=== PATIENT | female | born 1950 | race Caucasian/White ===

== ENCOUNTER 2017-11-16 02:45 | Emergency (ER) | payer MEDICARE, BC ==
[2017-11-16 03:20] LABS: #Basophils 0.1 thou/uL (0.0-0.2); #Eosinphils 0.6 thou/uL (0.0-0.7); #Lymphocytes 1.3 thou/uL (1.20-3.40); #Monocytes 1.2 thou/uL (0.11-0.59); #Neutrophils 9.5 thou/uL (1.40-6.50); %Basophils 0.5 % (0.0-1.0); %Eosinophils 4.4 % (0.0-10.0); %Lymphocytes 10.3 % (21.0-51.0); %Monocytes 9.2 % (0.0-10.0); %Neutrophils 75.6 % (42.0-75.0); Hemoglobin 13.2 g/dL (12.0-16.0); Mean Corpuscular HGB CONC 34.2 g/dL (32.0-36.0); Mean Corpuscular Hemoglobin 32.5 pg (27.0-31.0); Mean Platelet Volume 7.4 fL (7.4-10.4); Platelet Count 285 thou/uL (130-400); RBC Distribution Width 11.3 % (11.5-14.5); Red Blood Cell (RBC) Count 4.05 mill/uL (4.20-5.40); White Blood Cell (WBC) Count 12.6 thou/uL (4.8-10.8)
[2017-11-16] MEDS ORDERED: Morphine 4 MG/ML VIAL ONE (03:34)
[2017-11-16] MEDS ORDERED: Ondansetron HCl/PF 4 MG/2 ML Vial ONE (03:34)
[2017-11-16 03:40] LABS: ALT (SGPT) 14 U/L (8-55); AST (SGOT) 12 U/L (5-34); Albumin 4.2 g/dL (3.4-4.8); Alkaline Phosphatase 47 U/L (40-150); Anion Gap 12 mmol/L (10-20); BUN (Urea Nitrogen) 10 mg/dL (9.8-20.1); Bilirubin, Total 0.5 mg/dL (0.2-1.2); Calc. Creatinine Clearance 0 mL/min (70-130); Calcium 9.8 mg/dL (7.8-10.44); Carbon Dioxide 26 mmol/L (23-31); Chloride 104 mmol/L (98-107); Estimated GFR-MDRD Greater than 90; Globulin 2.8 g/dL (2.4-3.5); Glucose 109 mg/dL (80-115); Potassium 3.6 mmol/L (3.5-5.1); Sodium 138 mmol/L (136-145)
[2017-11-16 03:41] LABS: Bilirubin Small (Negative); Blood, Urine Moderate (Negative); Clarity TURBID (Clear); Glucose, Urine (Dipstick) Negative (Negative); Leukocyte Large (Negative); Nitrite Positive (Negative); Protein, Urine (Dipstick) 30 mg/dL (Neg-Trace); Specific Gravity, Urine 1.025 (1.002-1.036); Urobilinogen 0.2 mg/dL (0.2-1.0); pH, Urine 5.5 (5.0-9.0)
[2017-11-16 03:43] LABS: Bacteria/HPF 4+ HPF (None Seen); Hyaline Casts/LPF 0-3 HYALINE CAST LPF (0-3 Hyaline); Pathc Cast-AUWi Flag 0.58 (0-2.49); Squamous Epithelial 0-3 HPF (0-3)
[2017-11-16] MEDS ORDERED: cefTRIAXone\\ROCEPHIN 1 GM VIAL ONE (04:06)
[2017-11-16] MEDS ORDERED: HYDROcodone/Acetaminophen 5/325 mg Tablet ONE (06:45)
--- NOTE | 2017-11-16 10:17 | CT ---
PRELIMINARY REPORT/[facility]/EMERGENTY AFTER-HOURS PROCEDURE CT Abdomen and Pelvis With Intravenous Contrast CLINICAL HISTORY: 67 years old, female; Left sided back pain. Had puvovaginal sling on 10/20 and had villarreal cath removed on 11/14. TECHNIQUE: Axial computed tomography images of the abdomen and pelvis with intravenous contrast. Coronal reforma tted images were created and reviewed. COMPARISON: No relevant prior studies available. FINDINGS: Lung bases: No acute findings. No mass. No consolidation. ABDOMEN: Liver: No acute findings. No mass. Gallbladder and bile ducts: No acute findings. No calcified stones. No ductal dilation. Pancreas: No acute findings. No mass. No ductal dilation. Spleen: No acute findings. No splenomegaly. Adrenals: No acute findings. No mass. Kidneys and ureters: Bilateral renal cortical lobulation, may reflect scarring. Duplex left collectin g system. No hydronephrosis. Stomach and bowel: There is colonic diverticulosis without CT evidence for acute diverticulitis. Ther e is moderate colonic fecal retention. No obstruction. PELVIS: Appendix: The appendix is not visualized. Bladder: Mild to moderate circumferential wall thickening. No mass. Reproductive: Uterus has been removed. High attenuation material noted in the region of the vaginal c uff, inferior to the bladder, possibly reflecting surgical material however small volume hemorrhage n ot excluded. ABDOMEN and PELVIS: Intraperitoneal space: No acute findings. No free air. No significant fluid collection. Bones/joints: No acute fracture. No dislocation. Soft tissues: No acute findings. Vasculature: There are atheromatous changes of the abdominal aorta without aneurysm. Lymph nodes: No acute findings. No enlarged lymph nodes. IMPRESSION: Mild to moderate circumferential bladder wall thickening, nonspecific, but may indicated cystitis. High attenuation material noted in the region of the vaginal cuff, inferior to the bladder, possibly reflecting surgical material however small volume hemorrhage not excluded. Bilateral renal cortical lobulation, may reflect scarring. Duplex left collecting system. Fecal retention. No postoperative obstruction, ileus, or abscess. Thank you for allowing us to participate in the care of your patient. Dictated and Authenticated by: Yousuf Noel MD 11/16/2017 5:36 AM Central Time ([place] & [place]) FINAL REPORT EMERGENCY AFTER HOURS CT ABDOMEN AND PELVIS WITH CONTRAST: Date: 11/06/17 FINDINGS/IMPRESSION: I agree with the findings and impression given in the preliminary report per [facility] physician. 1. There is questionable thickening of the urinary bladder wall which could be secondary to cystitis . 2. Diverticulosis. 3. There is high density material within the vaginal vault. This is nonspecific. Correlate with phys ical exam. POS: [facility]
== END 2017-11-16 07:05 | disposition home or self-care (01) ==
LOC: ERS 02:45
DX: G89.18 Other acute postprocedural pain (principal); N39.0 Urinary tract infection, site not specified; E78.5 Hyperlipidemia, unspecified; I10 Essential (primary) hypertension; K21.9 Gastro-esophageal reflux disease without esophagitis; Z79.82 Long term (current) use of aspirin; Z79.899 Other long term (current) drug therapy
CPT/HCPCS: 36415; 51702; 74177; 80053; 81003; 81015; 85025; 87077; 87086; 87186; 96361; 96374; 96375; A4353; J0696; J2270; J2405

== ENCOUNTER 2017-12-13 08:19 | Outpatient (CLI) | payer MEDICARE, BC | END 2017-12-13 08:20 | disposition home or self-care (01) | LOC: BICMAMMO 08:19 | PROVIDERS: ATTEND Family Medicine | DX: Z12.31 Encounter for screening mammogram for malignant neoplasm of breast (principal); Z13.820 Encounter for screening for osteoporosis; M85.88 Other specified disorders of bone density and structure, other site; M85.859 Other specified disorders of bone density and structure, unspecified thigh | CPT/HCPCS: 77063; 77067; 77080 ==

== ENCOUNTER 2018-01-26 16:23 | Outpatient (CLI) | payer MEDICARE, BC ==
--- NOTE | 2018-01-26 17:39 | RAD ---
LEFT RIB SERIES THREE VIEWS: 01/26/18 PROVIDED CLINICAL HISTORY: Left lower rib pain without injury. FINDINGS: There is no evidence for a displaced left sided rib fracture, pleural fluid or pneumothorax. There is no evidence for radiographically apparent lytic or blastic rib lesion. IMPRESSION: Unremarkable left rib series. POS: [facility]
== END 2018-01-26 16:24 | disposition home or self-care (01) ==
LOC: BICRAD 16:23
PROVIDERS: ATTEND Family Medicine
DX: R07.9 Chest pain, unspecified (principal)

== ENCOUNTER 2018-03-20 08:16 | Outpatient (CLI) | payer MEDICARE, BC ==
--- NOTE | 2018-03-20 10:50 | CT ---
CT CHEST WITH CONTRAST: CT ABDOMEN WITH CONTRAST: CT PELVIS WITH CONTRAST: HISTORY: Sternal pain, wrapping around the left breast, x3 months. Abdominal tenderness. COMPARISON: Abdomen and pelvis CT from 11/16/2017. FINDINGS: CHEST: No mediastinal mass, lymphadenopathy, or hematoma. Heart size is within normal limits. No s ignificant pericardial fluid. The thoracic and abdominal aorta have a normal caliber. No periaortic fat stranding. The trachea and central bronchi are patent. Dependent atelectatic changes in the lung parenchyma. N o parenchymal mass or consolidation. No pleural effusion or pneumothorax. ABDOMEN: The portal vein is patent. There is subtle hypodensity involving the hepatic parenchyma, n ear the falciform ligament, measuring 0.8 x 0.3 cm. A focal area of fatty infiltration is suspected. No enhancing masses in the liver. The spleen, pancreas, and adrenal glands are unremarkable. No gastrohepatic, retrocrural, or periportal lymphadenopathy. No mesenteric mass, lymphadenopathy, free air, or free fluid. Symmetric enhancement of the kidneys. Bilaterally, no obstructive uropathy. Small hiatal hernia. Gastric mucosa, duodenum, and multiple normal caliber small bowel loops are noted. The ileocecal diamond ction is normal. An appendix is not appreciated. NO inflammation of the cecal apex. There is scatt ered fecal material in a nondistended, nondilated colon. Occasional diverticulum. No diverticulitis . No mesenteric mass, lymphadenopathy, free air, or free fluid. PELVIS: Hysterectomy changes are noted. No pelvic mass, lymphadenopathy, free air, or free fluid. No lytic or blastic lesions in the osseous structures. There is a heterogeneous appearance of the vaginal vault, similar to the previous examination. Direc t visualization is recommended. IMPRESSION: 1. No acute abnormality in the abdomen or pelvis. 2. Stable heterogeneity of the vaginal vault. Correlate clinically with direct visualization. POS: [facility]
[2018-03-20] MEDS ORDERED: Iopamidol 370 76% 100 ML VIAL ONE (10:58)
== END 2018-03-20 08:17 | disposition home or self-care (01) ==
LOC: CT 08:16
PROVIDERS: ATTEND Family Medicine
DX: R10.9 Unspecified abdominal pain (principal); R07.9 Chest pain, unspecified; N89.8 Other specified noninflammatory disorders of vagina
CPT/HCPCS: 71260; 74177; 82565

== ENCOUNTER 2019-01-09 09:47 | Outpatient (CLI) | payer MEDICARE, BC ==
--- NOTE | 2019-01-09 11:46 | MMO ---
Bilateral MAMMO Bilat Screen [facility]. CLINICAL HISTORY: Patient is 68 years old and is seen for screening. The patient has no family history of breast cancer. The patient has no personal history of cancer. VIEWS: The views performed were: bilateral craniocaudal with tomosynthesis and bilateral mediolateral oblique with tomosynthesis. FILMS COMPARED: The present examination has been compared to prior imaging studies performed at [facility] on 11/09/2016 and 12/13/2017, and at [facility] on 08/19/2014 and 09/23/2015. MAMMOGRAM FINDINGS: There are scattered fibroglandular densities. There are benign appearing calcifications seen in both breasts. There are no suspicious masses, suspicious calcifications, or new areas of architectural distortion. IMPRESSION: THERE IS NO MAMMOGRAPHIC EVIDENCE OF MALIGNANCY. A ROUTINE FOLLOW-UP MAMMOGRAM IN 1 YEAR IS RECOMMENDED. THE RESULTS OF THIS EXAM WERE SENT TO THE PATIENT. ACR BI-RADS Category 2 - Benign finding MAMMOGRAPHY NOTE: 1. A negative mammogram report should not delay a biopsy if a dominant of clinically suspicious mass is present. 2. Approximately 10% to 15% of breast cancers are not detected by mammography. 3. Adenosis and dense breasts may obscure an underlying neoplasm. Reported by: TERRA ODONNELL MD Electonically Signed: [id number]
== END 2019-01-09 09:48 | disposition home or self-care (01) ==
LOC: BICMAMMO 09:47
PROVIDERS: ATTEND Family Medicine
DX: Z12.31 Encounter for screening mammogram for malignant neoplasm of breast (principal)
CPT/HCPCS: 77063; 77067

== ENCOUNTER 2020-01-14 09:57 | Outpatient (CLI) | payer MEDICARE, BC ==
--- NOTE | 2020-01-14 11:45 | MMO ---
Bilateral MAMMO Bilat Screen [facility]. CLINICAL HISTORY: Patient is 69 years old and is seen for screening. The patient has no family history of breast cancer. The patient has no personal history of cancer. VIEWS: The views performed were: bilateral craniocaudal with tomosynthesis and bilateral mediolateral oblique with tomosynthesis. FILMS COMPARED: The present examination has been compared to prior imaging studies performed at [facility] on 11/09/2016, 12/13/2017 and 01/09/2019, and at [facility] on 09/23/2015. This study has been interpreted with the assistance of computer-aided detection. MAMMOGRAM FINDINGS: There are scattered fibroglandular densities. There are stable benign appearing calcifications seen in both breasts. There are no suspicious masses, suspicious calcifications, or new areas of architectural distortion. IMPRESSION: THERE IS NO MAMMOGRAPHIC EVIDENCE OF MALIGNANCY. A ROUTINE FOLLOW-UP MAMMOGRAM IN 1 YEAR IS RECOMMENDED. THE RESULTS OF THIS EXAM WERE SENT TO THE PATIENT. ACR BI-RADS Category 2 - Benign finding MAMMOGRAPHY NOTE: 1. A negative mammogram report should not delay a biopsy if a dominant of clinically suspicious mass is present. 2. Approximately 10% to 15% of breast cancers are not detected by mammography. 3. Adenosis and dense breasts may obscure an underlying neoplasm. Reported by: MAMTA LAGOS MD Electonically Signed: [id number]
== END 2020-01-14 09:58 | disposition home or self-care (01) ==
LOC: BICMAMMO 09:57
PROVIDERS: ATTEND Family Medicine
DX: Z12.31 Encounter for screening mammogram for malignant neoplasm of breast (principal)
CPT/HCPCS: 77063; 77067

== ENCOUNTER 2020-07-22 17:19 | Inpatient (IN) | payer MEDICARE, BC ==
[~2020-07-22 17:19] MED LIST: Iopamidol-370 76% 500 ML 1 ML ONE
[2020-07-22 18:04] LABS: #Basophils 0.1 thou/uL (0.0-0.2); #Eosinphils 0.2 thou/uL (0.0-0.7); #Monocytes 1.3 thou/uL (0.11-0.59); #Neutrophils 6.1 thou/uL (1.40-6.50); %Eosinophils 1.8 % (0.0-10.0); %Monocytes 14.5 % (0.0-10.0); %Neutrophils 70.7 % (42.0-75.0); Hemoglobin 13.8 g/dL (12.0-16.0); Mean Corpuscular HGB CONC 33.3 g/dL (32.0-36.0); Mean Corpuscular Hemoglobin 31.6 pg (27.0-31.0); Mean Corpuscular Volume 94.9 fL (78.0-98.0); Mean Platelet Volume 6.9 fL (7.4-10.4); Platelet Count 282 thou/uL (130-400); RBC Distribution Width 11.3 % (11.5-14.5); Red Blood Cell (RBC) Count 4.35 mill/uL (4.20-5.40); White Blood Cell (WBC) Count 8.7 thou/uL (4.8-10.8)
[2020-07-22 18:10] LABS: PTT 38.8 sec (22.9-36.1); Prothrombin Time 13.1 sec (12.0-14.7)
[2020-07-22 18:25] LABS: ALT (SGPT) 22 U/L (8-55); AST (SGOT) 17 U/L (5-34); Albumin 4.2 g/dL (3.4-4.8); Alkaline Phosphatase 43 U/L (40-110); Anion Gap 12 mmol/L (10-20); BUN (Urea Nitrogen) 10 mg/dL (9.8-20.1); Bilirubin, Total 0.7 mg/dL (0.2-1.2); Calc. Creatinine Clearance 0 mL/min (70-130); Calcium 9.3 mg/dL (7.8-10.44); Carbon Dioxide 27 mmol/L (23-31); Chloride 95 mmol/L (98-107); Glucose 112 mg/dL (80-115); Lipase 24 U/L (8-78); Potassium 3.6 mmol/L (3.5-5.1); Protein, Total 7.2 g/dL (5.8-8.1); Sodium 130 mmol/L (136-145)
[2020-07-22] MEDS ORDERED: cefTRIAXone\\ROCEPHIN 2 GM VIAL ONE (18:31)
[2020-07-22 19:25] LABS: Bacteria/HPF 2+ HPF (None Seen); Bilirubin Negative (Negative); Blood, Urine 1+ (Negative); Clarity Turbid (Clear); Glucose, Urine (Dipstick) Normal (Negative); Ketone, Urine 100 mg/dL (Negative); Leukocyte Negative Leu/uL (Negative); Nitrite Negative (Negative); Protein, Urine (Dipstick) 30 mg/dL (Neg-Trace); Specific Gravity, Urine 1.015 (1.002-1.036); Squamous Epithelial 21-50 HPF (0-3); Urobilinogen Normal mg/dL (Less than 2); WBC/HPF 0-3 HPF (0-3)
[2020-07-22] MEDS ORDERED: Morphine 4 MG/ML VIAL ONE (20:20)
[2020-07-22] MEDS ORDERED: Ketorolac Tromethamine 30 MG/ML VIAL ONE (20:21)
[2020-07-22] MEDS ORDERED: Vancomycin 1 GM/200 ML BAG ONE (20:22)
[2020-07-22] MEDS ORDERED: Ondansetron ODT 4 MG TAB PO PRN (20:44)
[2020-07-22] MEDS ORDERED: Promethazine 25 MG TAB PO PRN (20:46)
[2020-07-22] MEDS ORDERED: Lactated Ringer's 1,000 ML IV SCH (21:00)
[2020-07-22 23:17] LABS: SARS-CoV-2 NAA Rapid Test Not Detected (NotDetected)
[2020-07-23] MEDS: Ibuprofen 800 MG TAB PO PRN (04:14)
[2020-07-23] MEDS ORDERED: Ibuprofen 800 MG TAB ONE (04:15)
[2020-07-23] MEDS ORDERED: Ondansetron ODT 4 MG TAB ONE (04:42)
[2020-07-23 05:05] LABS: #Basophils 0.1 thou/uL (0.0-0.2); #Eosinphils 0.3 thou/uL (0.0-0.7); #Lymphocytes 1.5 thou/uL (1.20-3.40); #Monocytes 1.1 thou/uL (0.11-0.59); #Neutrophils 5.1 thou/uL (1.40-6.50); %Basophils 0.6 % (0.0-1.0); %Eosinophils 4.1 % (0.0-10.0); %Lymphocytes 18.4 % (21.0-51.0); %Monocytes 13.5 % (0.0-10.0); %Neutrophils 63.4 % (42.0-75.0); Hemoglobin 11.8 g/dL (12.0-16.0); Mean Corpuscular HGB CONC 34.6 g/dL (32.0-36.0); Mean Corpuscular Hemoglobin 32.8 pg (27.0-31.0); Mean Corpuscular Volume 94.8 fL (78.0-98.0); Mean Platelet Volume 7.2 fL (7.4-10.4); Platelet Count 228 thou/uL (130-400); RBC Distribution Width 11.3 % (11.5-14.5); Red Blood Cell (RBC) Count 3.59 mill/uL (4.20-5.40)
[2020-07-23 05:31] LABS: ALT (SGPT) 17 U/L (8-55); AST (SGOT) 12 U/L (5-34); Albumin 3.4 g/dL (3.4-4.8); Alkaline Phosphatase 34 U/L (40-110); Anion Gap 12 mmol/L (10-20); BUN (Urea Nitrogen) 10 mg/dL (9.8-20.1); Bilirubin, Total 0.4 mg/dL (0.2-1.2); Calc. Creatinine Clearance 89 mL/min (70-130); Calcium 7.9 mg/dL (7.8-10.44); Carbon Dioxide 24 mmol/L (23-31); Chloride 99 mmol/L (98-107); Globulin 2.6 g/dL (2.4-3.5); Glucose 91 mg/dL (80-115); Potassium 3.5 mmol/L (3.5-5.1); Sodium 131 mmol/L (136-145)
[2020-07-23] MEDS ORDERED: Enoxaparin Sodium 40 MG/0.4 ML SYRINGE ONE (09:40)
[2020-07-23] MEDS: Lactated Ringer's 1,000 ML IV SCH ×3 (10:01→18:40)
[2020-07-23] MEDS: Vancomycin HCl 750 MG in Sodium Chloride 0.9% 250 ML 250 ML IVPB SCH ×2 (10:03→20:06)
[2020-07-23] MEDS: Enoxaparin Sodium 40 MG/0.4 ML SYRINGE SC SCH (10:04)
[2020-07-23] MEDS ORDERED: Aspirin 81 mg Enteric Coated Tablet ONE (16:03)
[2020-07-23] MEDS ORDERED: Acetaminophen 325 MG TAB ONE (16:03)
[2020-07-23] MEDS: Aspirin 81 mg Enteric Coated Tablet PO SCH (16:10)
[2020-07-23] MEDS: Ezetimibe 10 MG TAB PO SCH (16:10)
[2020-07-23] MEDS: Acetaminophen 325 MG TAB PO PRN ×2 (16:10→22:31)
[2020-07-23] MEDS ORDERED: cefTRIAXone\\ROCEPHIN 2 GM in Sodium Chloride 0.9% 100 ML IVPB SCH (18:00)
[2020-07-23 18:18] VITALS: BMI 25.2
[2020-07-23] MEDS ORDERED: Atorvastatin Calcium 20 MG TAB PO SCH (21:00)
[2020-07-23 22:01] LABS: Bacteria/HPF None Seen HPF (None Seen); Bilirubin Negative (Negative); Blood, Urine Trace (Negative); Clarity Clear (Clear); Glucose, Urine (Dipstick) Normal (Negative); Ketone, Urine 20 mg/dL (Negative); Leukocyte Negative Leu/uL (Negative); Nitrite Negative (Negative); Protein, Urine (Dipstick) Negative (Neg-Trace); RBC/HPF 0-3 HPF (0-3); Specific Gravity, Urine 1.008 (1.002-1.036); Squamous Epithelial 0-3 HPF (0-3); Urobilinogen Normal mg/dL (Less than 2); WBC/HPF 0-3 HPF (0-3); pH, Urine 5.5 (5.0-9.0)
[2020-07-23 22:03] LABS: Urine Culture Reflex No No
[2020-07-24] MEDS: Ibuprofen 800 MG TAB PO PRN (03:30)
[2020-07-24] MEDS: Lactated Ringer's 1,000 ML IV SCH (05:06)
[2020-07-24 07:32] LABS: #Basophils 0.1 thou/uL (0.0-0.2); #Eosinphils 0.4 thou/uL (0.0-0.7); #Monocytes 0.6 thou/uL (0.11-0.59); #Neutrophils 3.6 thou/uL (1.40-6.50); %Basophils 0.9 % (0.0-1.0); %Eosinophils 7.1 % (0.0-10.0); %Lymphocytes 18.2 % (21.0-51.0); %Monocytes 10.3 % (0.0-10.0); %Neutrophils 63.5 % (42.0-75.0); Hemoglobin 11.1 g/dL (12.0-16.0); Mean Corpuscular Hemoglobin 32.4 pg (27.0-31.0); Mean Corpuscular Volume 95.5 fL (78.0-98.0); Mean Platelet Volume 7.3 fL (7.4-10.4); Platelet Count 224 thou/uL (130-400); RBC Distribution Width 10.9 % (11.5-14.5); Red Blood Cell (RBC) Count 3.43 mill/uL (4.20-5.40); White Blood Cell (WBC) Count 5.7 thou/uL (4.8-10.8)
[2020-07-24 07:43] LABS: Vancomycin, Trough 6.1 ug/mL
[2020-07-24 07:47] LABS: ALT (SGPT) 16 U/L (8-55); AST (SGOT) 12 U/L (5-34); Albumin 3.1 g/dL (3.4-4.8); Alkaline Phosphatase 33 U/L (40-110); Anion Gap 12 mmol/L (10-20); BUN (Urea Nitrogen) 6 mg/dL (9.8-20.1); Bilirubin, Total 0.4 mg/dL (0.2-1.2); Calc. Creatinine Clearance 104 mL/min (70-130); Carbon Dioxide 26 mmol/L (23-31); Chloride 100 mmol/L (98-107); Globulin 2.4 g/dL (2.4-3.5); Glucose 86 mg/dL (80-115); Potassium 3.4 mmol/L (3.5-5.1); Protein, Total 5.5 g/dL (5.8-8.1); Sodium 135 mmol/L (136-145)
[2020-07-24] MEDS ORDERED: Potassium Chloride 20 MEQ TAB PO SCH (08:30)
[2020-07-24] MEDS ORDERED: VANCOMYCIN 1.25 GM/250 ML BAG 1.25 GM in Premix Bag 1 BAG IVPB SCH (09:00)
[2020-07-24] MEDS: Vancomycin HCl 750 MG in Sodium Chloride 0.9% 250 ML 250 ML IVPB SCH (09:09)
[2020-07-24] MEDS: Enoxaparin Sodium 40 MG/0.4 ML SYRINGE SC SCH (09:22)
[2020-07-24] MEDS: Ezetimibe 10 MG TAB PO SCH (09:23)
[2020-07-24] MEDS: Aspirin 81 mg Enteric Coated Tablet PO SCH (09:23)
[2020-07-24 12:56] VITALS: BP 118/66; TEMP 99.1
== END 2020-07-24 12:12 | disposition home or self-care (01) | DRG 872 ==
LOC: ERS 17:19 → ERHOLD 20:08 → T4-A 07-23 18:09
PROVIDERS: ADMIT Emergency Medicine; ATTEND Family Medicine
DX: A41.9 Sepsis, unspecified organism (principal); E87.1 Hypo-osmolality and hyponatremia; Z20.822 Contact with and (suspected) exposure to COVID-19; N39.3 Stress incontinence (female) (male); K21.9 Gastro-esophageal reflux disease without esophagitis; E78.5 Hyperlipidemia, unspecified; I10 Essential (primary) hypertension; M79.7 Fibromyalgia; Z90.710 Acquired absence of both cervix and uterus; Z88.2 Allergy status to sulfonamides; Z88.8 Allergy status to other drugs, medicaments and biological substances; Z79.899 Other long term (current) drug therapy
CPT/HCPCS: 0240U; 36415; 71045; 74177; 80053; 80202; 81001; 81003; 81015; 83605; 83690; 84145; 84484; 85025; 85610; 85730; 87040; 87086; 87633; 87798; 93005; 94760; 96365; 96366; 96367; 96375; J0696; J1650; J1885; J2270; J3370; J3490; J7050; Q0162; Q0169; Q9967

== ENCOUNTER 2021-03-16 10:42 | Outpatient (CLI) | payer MEDICARE, BC | END 2021-03-16 10:43 | disposition home or self-care (01) | LOC: BICMAMMO 10:42 | PROVIDERS: ATTEND Family Medicine | DX: Z12.31 Encounter for screening mammogram for malignant neoplasm of breast (principal) | CPT/HCPCS: 77063; 77067 ==

== ENCOUNTER 2021-04-13 13:34 | Outpatient (CLI) | payer MEDICARE, BC | END 2021-04-13 13:35 | disposition home or self-care (01) | LOC: TBSIIMAG 13:34 | PROVIDERS: ATTEND Podiatrist Foot & Ankle Surgery | DX: G57.62 Lesion of plantar nerve, left lower limb (principal); G57.82 Other specified mononeuropathies of left lower limb ==

== ENCOUNTER 2022-03-30 08:43 | Outpatient (CLI) | payer MEDICARE, BC | END 2022-03-30 08:44 | disposition home or self-care (01) | LOC: BICMAMMO 08:43 | PROVIDERS: ATTEND Family Medicine | DX: Z12.31 Encounter for screening mammogram for malignant neoplasm of breast (principal); Z13.820 Encounter for screening for osteoporosis; M85.89 Other specified disorders of bone density and structure, multiple sites | CPT/HCPCS: 77063; 77067; 77080 ==

== ENCOUNTER 2022-05-31 13:35 | Outpatient (CLI) | payer MEDICARE, BC | END 2022-05-31 13:36 | disposition home or self-care (01) | LOC: BICRAD 13:35 | PROVIDERS: ATTEND Family Medicine | DX: R05.9 Cough, unspecified (principal) | CPT/HCPCS: 71046 ==

== ENCOUNTER 2023-03-16 09:20 | Outpatient (CLI) | payer MEDICARE, BC | END 2023-03-16 09:21 | disposition home or self-care (01) | LOC: RAD 09:20 | PROVIDERS: ATTEND Family Medicine | DX: M54.2 Cervicalgia (principal); M19.011 Primary osteoarthritis, right shoulder; R07.9 Chest pain, unspecified; M25.511 Pain in right shoulder; S16.1XXA Strain of muscle, fascia and tendon at neck level, initial encounter; M47.812 Spondylosis without myelopathy or radiculopathy, cervical region | CPT/HCPCS: 71046; 72040 ==

== ENCOUNTER 2023-04-15 09:37 | Outpatient (CLI) | payer MEDICARE, BC | END 2023-04-15 09:38 | disposition home or self-care (01) | LOC: BICMAMMO 09:37 | PROVIDERS: ATTEND Family Medicine | DX: Z12.31 Encounter for screening mammogram for malignant neoplasm of breast (principal); M85.89 Other specified disorders of bone density and structure, multiple sites | CPT/HCPCS: 77063; 77067; 77080 ==

== ENCOUNTER 2024-04-18 11:13 | Outpatient (CLI) | payer MEDICARE, BC | END 2024-04-18 11:14 | disposition home or self-care (01) | LOC: BICMAMMO 11:13 | PROVIDERS: ATTEND Family Medicine | DX: Z12.31 Encounter for screening mammogram for malignant neoplasm of breast (principal) | CPT/HCPCS: 77063; 77067 ==